=== PATIENT | male | born 1950 | race Caucasian/White ===

== ENCOUNTER 2017-03-21 10:37 | Emergency (ER) | payer OTHER ==
[~2017-03-21 10:37] MED LIST: NORCO 5-325 TA1 EACH PO; NORVASC10 MG PO; PROTONIX40 M2
[2017-03-21] MEDS ORDERED: PREDNISONE 20 M20 MG PO (10:50)
[2017-03-21 11:45] VITALS: BP 157/86
== END 2017-03-21 16:46 | disposition home or self-care (01) ==
LOC: ER 10:37
DX: M10.9 Gout, unspecified (principal); M79.671 Pain in right foot

== ENCOUNTER 2017-12-15 21:15 | Emergency (ER) | payer OTHER ==
[~2017-12-15] VITALS: Ht 180.3 cm; Wt 93.0 kg
[~2017-12-15 21:15] MED LIST changes: +PREDNISONE 20 M20 MG PO
[2017-12-15] MEDS ORDERED: LEXAPRO 10 MG T10 M1 PO (21:30)
[2017-12-15] MEDS ORDERED: REGLAN 10 MG TA10 MG PO (21:30)
[2017-12-15] MEDS ORDERED: RESTORIL30 MG PO (21:30)
[2017-12-15 21:36] LABS: ABSOLUTE NEUTROPHILS 4.5 thou/uL (1.4-8.2); BASOPHILS 1.2 % (0.0-2.0); EOSINOPHILS 1.1 % (0.0-3.0); HEMATOCRIT 41.3 % (42.0-52.0); HEMOGLOBIN 14.2 gm/dL (14.0-18.0); LYMPHOCYTES 37.5 % (24.0-44.0); MCH 29.9 pg (26.0-34.0); MCHC 34.3 g/dL (28.0-37.0); MCV 87.1 fL (80.0-100.0); MONOCYTES 8.1 % (1.0-8.0); PLATELET COUNT 242 thou/uL (150-400); POLYS 52.1 % (36.0-66.0); RBC 4.74 mil/uL (4.50-6.00); RDW 13.6 % (10.5-14.5); WBC 8.7 thou/uL (4.0-11.0)
[2017-12-15 21:42] LABS: CALCIUM 9.1 mg/dL (8.5-10.1); CREATININE 1.4 mg/dL (0.7-1.3)
[2017-12-15 21:47] LABS: URINE BILIRUBIN NEGATIVE (Negative); URINE BLOOD 3+ (Negative); URINE CLARITY CLEAR; URINE COLOR YELLOW; URINE GLUCOSE-RANDOM* NEGATIVE (Negative); URINE KETONES NEGATIVE (Negative); URINE LEUKOCYTES-REFLEX NEGATIVE (Negative); URINE NITRITE-REFLEX NEGATIVE (Negative); URINE PROTEIN (DIPSTICK) NEGATIVE (Negative); URINE UROBILINOGEN 0.2 E.U./dl (0.2-1.0)
[2017-12-15 21:59] LABS: BACTERIA-REFLEX 1-9 Few /HPF (None Seen); CASTS None Seen /LPF (None Seen); CRYSTALS None Seen /LPF (None Seen); SQUAMOUS 0-3 Few /LPF (0-3); URINE RBC >20 Many /HPF (0-2); URINE WBC-REFLEX None Seen /HPF (0-5)
[2017-12-15] MEDS ORDERED: HYDROCODONE-AP1 EAC6 PO (22:33)
[2017-12-15] MEDS ORDERED: ONDANSETRON HCL4 M2 PO (22:33)
[2017-12-15 22:52] VITALS: BP 144/82
[2017-12-17] MEDS ORDERED: FLOMAX0.4 MG PO (22:32)
[2017-12-17] MEDS ORDERED: TORADOL 10 MG T10 MG PO (22:32)
[2017-12-17] MEDS ORDERED: HYDROCODONE-AP1 EAC6 PO (22:32)
== END 2017-12-15 22:52 | disposition home or self-care (01) ==
LOC: ER 21:15
PROVIDERS: Nurse Practitioner Family
DX: N20.0 Calculus of kidney (principal); Z87.442 Personal history of urinary calculi